=== PATIENT | female | born 1960 | race African-American/Black ===

== ENCOUNTER → 2017-02-12 | Outpatient (CLI) | payer BC ==
--- NOTE | 2017-02-16 15:28 | MAMMOGRAPHY REPORT ---
BILATERAL DIGITAL SCREENING MAMMOGRAM TOMOSYNTHESIS WITH CAD: 02/12/2017 CLINICAL HISTORY: Routine screening. Patient has no complaints. TECHNIQUE: Breast tomosynthesis in addition to standard 2D mammography was performed. Current study was also evaluated with a Computer Aided Detection (CAD) system. COMPARISON: Comparison is made to exams dated: 02/12/2016 mammogram, 02/08/2015 mammogram, 4 mammogram, 02/06/2013 mammogram, 07/22/2012 mammogram, and 05/20/2012 mammogram - [facility]. BREAST COMPOSITION: The tissue of both breasts is heterogeneously dense, which may obscure small mas ses. FINDINGS: No suspicious masses, calcifications, or areas of architectural distortion are noted in ei ther breast. There has been no significant interval change compared to prior exams. IMPRESSION: ACR BI-RADS CATEGORY 1: NEGATIVE There is no mammographic evidence of malignancy. A 1 year screening mammogram is recommended. The pa tient will receive written notification of the results. Approximately 10% of breast cancers are not detected with mammography. A negative mammographic report should not delay biopsy if a clinically suggestive mass is present. Trina King M.D. ah/:02/12/2017 16:05:11 Supervisor Cytology: Jeannette Erazo RT(R)(M)(BD), [facility] letter sent: Normal 1/2 BI-RADS Code: ACR BI-RADS Category 1: Negative
== END | disposition home or self-care (01) ==
LOC: C.MAMM 08:47
PROVIDERS: ATTEND Obstetrics & Gynecology
DX: Z12.31 Encounter for screening mammogram for malignant neoplasm of breast (principal)

== ENCOUNTER → 2017-10-06 | Outpatient (CLI) | payer BC, OTHER ==
--- NOTE | 2017-10-06 11:20 | DIAGNOSTIC IMAGING REPORT ---
RIGHT SHOULDER 3 VIEWS HISTORY: TINGLING IN R ARM COMPARISON: None. FINDINGS: There is no fracture or dislocation. Soft tissues are unremarkable. The right clavicle is intact. IMPRESSION: Unremarkable right shoulder. Electronically signed by: Eitan Bhandari M.D. 10/06/2017 11:19 AM Dictated Date/Time: 10/06/2017 11:08 AM
--- NOTE | 2017-10-06 11:22 | DIAGNOSTIC IMAGING REPORT ---
CERVICAL SPINE 3 VIEWS CLINICAL HISTORY: Right upper extremity tingling/numbness. FINDINGS: AP, lateral, and odontoid views of the cervical spine are obtained. No prior studies are available for comparison at the time of dictation. The skeletal structures are well mineralized for age. There is no radiographic evidence of acute fracture or malalignment. Vertebral body height and alignment are maintained throughout the cervical spine. There is straightening of the cervical lordosis. The odontoid process and lateral masses appear intact as seen on the open-mouth view. The spinolaminar line is preserved. Productive degenerative change is noted at the atlantodental articulation. Small anterior osteophytes are seen throughout. The intervertebral disc spaces are preserved. The prevertebral soft tissues are normal in appearance. The imaged upper lobe lung parenchyma appears clear. IMPRESSION: No acute bony abnormality is seen involving the cervical spine. Dictated: 10/06/2017 11:12 AM Transcribed: 10/06/2017 11:22 AM [email or web address] Electronically signed by: Darwin Lewis M.D. 10/06/2017 11:24 AM Dictated Date/Time: 10/06/2017 11:12 AM
== END | disposition home or self-care (01) ==
LOC: C.RAD 10:45
PROVIDERS: ATTEND Nurse Practitioner
DX: R20.2 Paresthesia of skin (principal)